=== PATIENT | male | born 1990 | race Two or more races ===

== ENCOUNTER 2019-11-10 14:32 | Emergency (ER) | payer OTHER, SELFPAY ==
[~2019-11-10] VITALS: Ht 190.5 cm; Wt 115.0 kg
[2019-11-10 14:49] VITALS: BP 115/76
[2019-11-10 15:07] LABS: BASOPHILS # (AUTO) 0.05 x10^3/uL (0-0.1); BASOPHILS % (AUTO) 1 % (0-1); EOSINOPHILS # (AUTO) 0.23 x10^3/uL (0-0.4); EOSINOPHILS % (AUTO) 3 % (1-7); LYMPHOCYTES # (AUTO) 3.32 x10^3/uL (1-3.4); LYMPHOCYTES % (AUTO) 38 % (22-44); MD NO; MEAN CORPUSCULAR HEMOGLOBIN 28.1 pg (27.5-34.5); MEAN CORPUSCULAR HGB CONC 33.6 g/dL (33.2-36.2); MEAN CORPUSCULAR VOLUME 83.5 fL (81-97); MEAN PLATELET VOLUME 9.3 fL (7.4-10.4); MONOCYTES % (AUTO) 8 % (2-9); NEUTROPHILS # (AUTO) 4.45 x10^3/uL (1.8-6.8); NEUTROPHILS % (AUTO) 51 % (42-75); PLATELET COUNT 243 x10^3/uL (130-400); RED BLOOD COUNT 5.43 x10^6/uL (4.38-5.82); RED CELL DISTRIBUTION WIDTH 13.2 % (9.4-14.8)
--- NOTE | 2019-11-10 17:57 | NUR ---
[employer] MACHINE OPERATOR: PT TO ROOM FROM [facility]
--- NOTE | 2019-11-10 17:58 | NUR ---
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 NO DIFFICULTY VOIDING OR WITH BM NO HX OF HERNIA/PATIENT REPORTS NO DEFORMITY WITH PALPATION
== END 2019-11-10 18:58 | disposition home or self-care (01) ==
LOC: ED 18:45
DX: S76.912A Strain of unspecified muscles, fascia and tendons at thigh level, left thigh, initial encounter (principal); X58.XXXA Exposure to other specified factors, initial encounter; Y93.89 Activity, other specified; Y92.89 Other specified places as the place of occurrence of the external cause; Y99.8 Other external cause status
CPT/HCPCS: 36415; 76870; 85025; 93975; 99285

== ENCOUNTER 2020-05-18 17:33 | Emergency (ER) | payer OTHER ==
[~2020-05-18] VITALS: Ht 190.5 cm; Wt 118.6 kg
[2020-05-18] MEDS ORDERED: OMNIPAQUE 350 MG/ML, 100ML BOTTLE ONE (20:00)
[2020-05-18] MEDS ORDERED: SODIUM CHLORIDE FLUSH 10ML SYR IVF ONE (21:00)
[2020-05-18 21:18] LABS: BASOPHILS % (AUTO) 1 % (0-1); EOSINOPHILS % (AUTO) 3 % (1-7); LYMPHOCYTES % (AUTO) 38 % (22-44); MEAN CORPUSCULAR HGB CONC 33.5 g/dL (33.2-36.2); MEAN PLATELET VOLUME 8.8 fL (7.4-10.4); MONOCYTES % (AUTO) 9 % (2-9); NEUTROPHILS % (AUTO) 50 % (42-75); PLATELET COUNT 237 x10^3/uL (130-400); RED BLOOD COUNT 5.36 x10^6/uL (4.38-5.82); RED CELL DISTRIBUTION WIDTH 13.3 % (9.4-14.8)
[2020-05-18 21:19] LABS: MD NO
[2020-05-18 21:23] LABS: ALBUMIN 3.5 g/dL (3.4-5.0); ANION GAP 2 mmol/L (5-15); CALCIUM 8.8 mg/dL (8.5-10.1); CHLORIDE 108 mmol/L (98-107)
--- NOTE | 2020-05-18 22:10 | NUR ---
PATIENT MOVED TO ROOM 5, THIS RN TO ASSUME CARE OF PATIENT. CT PENDING
[2020-05-18] MEDS ORDERED: OXYcodone/APAP 5/325MG TABLET ONE (22:14)
--- NOTE | 2020-05-18 22:23 | NUR ---
PATIENT MEDICATED PER EMAR
[2020-05-18] MEDS ORDERED: OXYcodone/APAP 5/325MG TABLET PO ONE (22:30)
--- NOTE | 2020-05-18 23:55 | NUR ---
ERP IN ROOM FOR RE-EVAL
[2020-05-19 00:19] VITALS: BP 112/61
--- NOTE | 2020-05-19 00:19 | NUR ---
Patient given discharge instructions and they have confirmed that they understand the instructions. Patient ambulatory with steady gait.
== END 2020-05-19 00:21 | disposition home or self-care (01) ==
LOC: ED 20:00
DX: K40.91 Unilateral inguinal hernia, without obstruction or gangrene, recurrent (principal); N50.812 Left testicular pain
CPT/HCPCS: 36415; 74177; 76870; 80048; 82040; 85025; 99285; Q9967